=== PATIENT | female | born 1980 | race Two or more races ===

== ENCOUNTER 2018-07-08 18:47 | Emergency (ER) | payer MEDICAID ==
[~2018-07-08] VITALS: Ht 157.5 cm; Wt 71.7 kg
--- NOTE | 2018-07-08 18:47 | NUR ---
BIB SELF W C/O HEADACHE, DIZZINESS, VOMITING THAT STARTED AT 1400 TODAY. TO ER BED 13, HOOKED TO MONITOR, AWAITING MD DE LOS SANTOS.
--- NOTE | 2018-07-08 19:55 | NUR ---
EMILE RAYO AT BEDSIDE
[2018-07-08] MEDS ORDERED: PROCHLORPERAZINE EDISYLATE 10 MG/2 ML VIAL ONE (19:59)
[2018-07-08] MEDS ORDERED: diphenhydrAMINE HCL 50 MG/ML VIAL ONE (19:59)
[2018-07-08] MEDS ORDERED: diphenhydrAMINE HCL 50 MG/ML VIAL IV ONE (20:00)
[2018-07-08] MEDS ORDERED: IV NS 0.9% 1,000 ML BAG IV ONE (20:00)
[2018-07-08] MEDS ORDERED: PROCHLORPERAZINE EDISYLATE 10 MG/2 ML VIAL IV ONE (20:00)
[2018-07-08] MEDS ORDERED: ACETAMINOPHEN ES 500 MG TABLET PO ONE (20:00)
[2018-07-08] MEDS ORDERED: ACETAMINOPHEN ES 500 MG TABLET ONE (20:03)
--- NOTE | 2018-07-08 20:20 | NUR ---
NOTED W EPISODE OF VOMITING. GRINDER BRAKE LINING MADE AWARE.
[2018-07-08] MEDS ORDERED: ONDANSETRON HCL/PF 4 MG/2 ML VIAL ONE (20:45)
[2018-07-08] MEDS ORDERED: ONDANSETRON HCL/PF 4 MG/2 ML VIAL IV ONE (21:00)
--- NOTE | 2018-07-08 21:30 | NUR ---
IV removed. Catheter intact and site benign. Pressure and 4x4 applied to site. No bleeding noted.Patient discharged to home in stable condition. Written and verbal after care instructions given. Patient verbalizes understanding of instruction.
[2018-07-08 21:41] VITALS: BP 136/64
== END 2018-07-08 21:35 | disposition home or self-care (01) ==
LOC: ER 18:50
DX: G43.909 Migraine, unspecified, not intractable, without status migrainosus (principal); R11.2 Nausea with vomiting, unspecified; I10 Essential (primary) hypertension
CPT/HCPCS: 96361; 96374; 96375; 99283; A4606; J0780; J1200; J2405; J7030

== ENCOUNTER 2019-04-20 23:26 | Emergency (ER) | payer MEDICAID ==
[~2019-04-20] VITALS: Ht 152.4 cm; Wt 68.0 kg
[2019-04-20 23:26] VITALS: BP 142/83
== END 2019-04-20 23:49 | disposition home or self-care (01) ==
LOC: ER 23:28
DX: I10 Essential (primary) hypertension (principal)

== ENCOUNTER 2019-07-03 20:28 | Emergency (ER) | payer MEDICAID ==
[~2019-07-03] VITALS: Ht 157.5 cm; Wt 68.0 kg
--- NOTE | 2019-07-03 20:58 | NUR ---
PATIENT CAME TO ER BED 11 C/O DIZZINESS SINCE 0500 THIS MORNING. PATIENT STATES SHE FEELS LIKE THE ROOM IS SPINNING AND HAS NEVER EXPERIENCED THIS SENSATION BEFORE. AAOX4. NO SOB. BREATHING EVENLY AND UNLABORED. AWAITING MD DE LOS SANTOS.
--- NOTE | 2019-07-03 21:07 | NUR ---
BLOOD DRAWN AND SENT WITH [employer]
--- NOTE | 2019-07-03 21:13 | NUR ---
EKG PERFORMED BY TECH
[2019-07-03 21:14] LABS: HEMOGLOBIN 13.8 g/dL (11.5-14.8); LYMPHOCYTES # (AUTO) 2.3 /CMM (0.8-4.8)
[2019-07-03 21:16] LABS: BASOPHILS % (AUTO) 0.4 % (0.0-2.0); EOSINOPHILS % (AUTO) 3.5 % (0.0-6.0); HEMATOCRIT 41 % (33-45); LYMPHOCYTES % (AUTO) 24.9 % (20.0-44.0); MEAN CORPUSCULAR HGB CONC 33 g/dl (31.0-36.0); MEAN CORPUSCULAR VOLUME 89 fL (82-100); NEUTROPHILS # (AUTO) 5.6 /CMM (1.8-8.9); NEUTROPHILS % (AUTO) 60.2 % (43.0-81.0); PLATELET COUNT (AUTO) 379 /CMM (150-450); RED BLOOD CELL COUNT(AUTO) 4.64 MIL/uL (4.0-5.2); WHITE BLOOD COUNT (AUTO) 9.3 K/uL (4.3-11.0)
[2019-07-03 21:27] LABS: CALCIUM, SERUM 8.8 mg/dL (8.5-10.1); CARBON DIOXIDE 27 mmol/L (21-32); CHLORIDE 106 mmol/L (98-107); CREATININE 0.7 mg/dL (0.6-1.3); GLUCOSE 85 mg/dL (74-106); POTASSIUM 3.9 mmol/L (3.5-5.1); SODIUM SERUM 142 mmol/L (136-145); UREA NITROGEN, BLOOD 8 mg/dL (7-18)
[2019-07-03] MEDS ORDERED: IV NS 0.9% 1,000 ML BAG IV ONE (21:30)
[2019-07-03] MEDS ORDERED: MECLIZINE HCL 25 MG TABLET ONE (21:59)
[2019-07-03] MEDS ORDERED: MECLIZINE HCL 25 MG TABLET PO ONE (22:00)
[2019-07-03 22:10] VITALS: BP 126/66
--- NOTE | 2019-07-03 22:10 | NUR ---
IV removed. Catheter intact and site benign. Pressure and 4x4 applied to site. No bleeding noted. Patient discharged to home in stable condition. Written and verbal after care instructions given. Patient verbalizes understanding of instruction.
== END 2019-07-03 22:11 | disposition home or self-care (01) ==
LOC: ER 20:37
DX: R42 Dizziness and giddiness (principal); I10 Essential (primary) hypertension
CPT/HCPCS: 36415; 71045; 80048; 84484; 85025; 93005 ×2; 96360; 99285; J7030; J8597

== ENCOUNTER 2022-03-30 15:02 | Emergency (ER) | payer MEDICAID ==
--- NOTE | 2022-03-30 15:30 | NUR ---
CALLED TO TRIAGE, NO ANSWER
--- NOTE | 2022-03-30 16:20 | NUR ---
CALLED TO TRIAGE, NO ANSWER
== END 2022-03-30 16:22 | disposition left against medical advice (07) ==
LOC: ER 15:02
DX: Z53.21 Procedure and treatment not carried out due to patient leaving prior to being seen by health care provider (principal)